=== PATIENT | female | born 1960 | race Caucasian/White ===

== ENCOUNTER → 2017-08-20 | Outpatient (CLI) | payer OTHER ==
[~2017-08-20] MED LIST: AMOX500T PO; ASPI-496 PO; INSU100I11 SQ; INSU100I13 SQ; INSU100I7 SQ; LISI-170 PO; METF10002 PO; ONDA4TAB10 PO; REGADENOSON 0.4 MG/5 ML SYRINGE ONE; SIMV40TA3 PO; SULF1TAB24 PO
== END ==
LOC: CFH 12:53
PROVIDERS: ATTEND Internal Medicine Cardiovascular Disease
DX: R07.89 Other chest pain (principal)
CPT/HCPCS: 78452; 93017; A9502; J2785